=== PATIENT | female | born 1985 | race Caucasian/White ===

== ENCOUNTER 2019-06-15 15:28 | Emergency (ER) | payer OTHER ==
[~2019-06-15] VITALS: Ht 167.6 cm; Wt 77.0 kg
[2019-06-15 23:40] VITALS: BP 136/68
== END 2019-06-16 00:12 | disposition home or self-care (01) ==
LOC: ER 15:28
DX: T43.611A Poisoning by caffeine, accidental (unintentional), initial encounter (principal); R00.0 Tachycardia, unspecified; R53.1 Weakness; Y92.89 Other specified places as the place of occurrence of the external cause; R03.0 Elevated blood-pressure reading, without diagnosis of hypertension
CPT/HCPCS: 93005; 99283